=== PATIENT | female | born 1955 | race Caucasian/White ===

== ENCOUNTER 2018-09-26 13:11 | Emergency (ER) | payer MEDICARE, OTHER ==
[~2018-09-26] VITALS: Ht 160 cm; Wt 87.6 kg
[~2018-09-26 13:11] MED LIST: ALEN10TA6 PO; ASPI-535 PO; CHOL200073 PO; FOLI-49 PO; HYDR-2086 PO; LOVA10TA63 PO; METF-849 PO; PRAV10TA43 PO; SULI150T PO
[2018-09-26 13:50] VITALS: Ht 160 cm; Wt 87.6 kg
== END 2018-09-26 20:53 | disposition left against medical advice (07) ==
LOC: E/R 13:11
DX: Z53.21 Procedure and treatment not carried out due to patient leaving prior to being seen by health care provider (principal)